=== PATIENT | female | born 1995 | race Caucasian/White ===

== ENCOUNTER 2024-02-26 13:21 | Emergency (ER) | payer MEDICAID ==
[~2024-02-26] VITALS: Ht 167.6 cm; Wt 82.7 kg
[2024-02-26] MEDS ORDERED: PRED20TA PO (14:29)
[2024-02-26] MEDS ORDERED: ALBU8HFA INH (14:29)
[2024-02-26] MEDS ORDERED: BENZ-38 PO (14:29)
[2024-02-26 14:36] VITALS: BP 128/79; PULSE 114; RESP 17; TEMP 98.3; O2SAT 98
== END 2024-02-26 14:38 | disposition home or self-care (01) ==
LOC: ER 13:21
DX: J22 Unspecified acute lower respiratory infection (principal); R07.89 Other chest pain; Z88.5 Allergy status to narcotic agent; Z91.040 Latex allergy status; Z88.8 Allergy status to other drugs, medicaments and biological substances
CPT/HCPCS: 71045; 93005; 99283